=== PATIENT | male | born 1945 | race Two or more races ===

== ENCOUNTER 2018-04-17 07:38 | Outpatient (CLI) | payer OTHER | END 2018-04-17 09:33 | disposition home or self-care (01) | LOC: EDBD 07:38 → NUCLEAR 07:38 | DX: R22.9 Localized swelling, mass and lump, unspecified (principal); N28.89 Other specified disorders of kidney and ureter; N28.1 Cyst of kidney, acquired; C64.9 Malignant neoplasm of unspecified kidney, except renal pelvis | CPT/HCPCS: 78816; A9552 ==